=== PATIENT | male | born 1955 | race Caucasian/White ===

== ENCOUNTER → 2016-04-30 | Outpatient (CLI) | payer OTHER ==
[~2016-04-30] MED LIST: ACET50TAOT PO; ASPI325T PO; BUPR10TASR PO; CALCTAB43 PO; LISI10TA2 PO; PRIL40CA PO; TUMS500C PO; TYLE167L PO; TYLE650T30 PO; VITMTA PO; WARF-23 PO; XARE15TA PO
[2016-04-30 09:34] LABS: BASO % 0.5 % (0.0-1.0); EOS # 0.1 K/mm3 (0.0-0.50); EOS % 1.8 % (0.0-3.0); LARGE UNSTAINED CELL # 0.2 K/mm3 (0.0-0.4); LARGE UNSTAINED CELL % 2.3 % (0.0-4.0); LYMPH # 1.4 K/mm3 (1.5-4.5); LYMPH % 17.7 % (24.0-44.0); MEAN CORPUSCULAR HEMOGLOBIN 27.8 pg (27.0-33.0); MEAN CORPUSCULAR HGB CONC 31.8 g/dl (32.0-36.5); MEAN CORPUSCULAR VOLUME 87.4 fl (80.0-96.0); MONO # 0.4 K/mm3 (0.0-0.8); MONO % 5.4 % (0.0-5.0); NEUTROPHILS # 5.6 K/mm3 (1.8-7.7); NEUTROPHILS % 72.2 % (36.0-66.0); PLATELET COUNT, AUTOMATED 284 k/mm3 (150-450); RED CELL DISTRIBUTION WIDTH 15.2 % (11.5-14.5); WHITE BLOOD COUNT 7.8 K/mm3 (4.0-10.0)
[2016-04-30 10:07] LABS: ALBUMIN 3.3 GM/DL (3.2-5.2); ALBUMIN/GLOBULIN RATIO 1.06 (1.00-1.93); ALKALINE PHOSPHATASE 97 U/L (45-117); ALT/SGPT 23 U/L (12-78); ANION GAP 7 MEQ/L (8-16); AST/SGOT 17 U/L (15-37); BILIRUBIN,TOTAL 0.2 MG/DL (0.2-1.0); BLOOD UREA NITROGEN 19 MG/DL (7-18); CALCIUM LEVEL 8.5 MG/DL (8.5-10.1); CARBON DIOXIDE LEVEL 33 MEQ/L (21-32); CHLORIDE LEVEL 104 MEQ/L (98-107); CHOLESTEROL LEVEL 198 MG/DL (<200); CREATININE FOR GFR 0.89 MG/DL (0.70-1.30); FREE T4 1.06 NG/DL (0.76-1.46); GLOMERULAR FILTRATION RATE > 60.0 (>56); GLUCOSE, FASTING 101 MG/DL (70-105); SODIUM LEVEL 144 MEQ/L (136-145); TOTAL PROTEIN 6.4 GM/DL (6.4-8.2); TRIGLYCERIDES LEVEL 173 MG/DL (<150)
== END ==
LOC: M WUC 08:26
PROVIDERS: ATTEND Nurse Practitioner Family
DX: Z87.19 Personal history of other diseases of the digestive system (principal); D50.8 Other iron deficiency anemias; I10 Essential (primary) hypertension; E78.5 Hyperlipidemia, unspecified

== ENCOUNTER → 2016-08-16 | Outpatient (CLI) | payer OTHER ==
[2016-08-16 17:39] LABS: INR 1.73
[2016-08-16 17:52] LABS: ALBUMIN 3.7 GM/DL (3.2-5.2); ALBUMIN/GLOBULIN RATIO 1.19 (1.00-1.93); ALKALINE PHOSPHATASE 90 U/L (45-117); ALT/SGPT 30 U/L (12-78); ANION GAP 7 MEQ/L (8-16); AST/SGOT 24 U/L (15-37); BILIRUBIN,TOTAL 0.3 MG/DL (0.2-1.0); BLOOD UREA NITROGEN 22 MG/DL (7-18); CALCIUM LEVEL 8.1 MG/DL (8.5-10.1); CARBON DIOXIDE LEVEL 31 MEQ/L (21-32); CHLORIDE LEVEL 104 MEQ/L (98-107); CREATININE FOR GFR 0.97 MG/DL (0.70-1.30); GLOMERULAR FILTRATION RATE > 60.0 (>56); GLUCOSE, FASTING 106 MG/DL (70-105); SODIUM LEVEL 142 MEQ/L (136-145); TOTAL IRON BINDING CAPACITY 453 UG/DL (250-450); TOTAL PROTEIN 6.8 GM/DL (6.4-8.2)
[2016-08-16 18:00] LABS: BASO % 0.5 % (0.0-1.0); EOS # 0.2 K/mm3 (0.0-0.50); EOS % 2.1 % (0.0-3.0); LARGE UNSTAINED CELL # 0.1 K/mm3 (0.0-0.4); LARGE UNSTAINED CELL % 1.5 % (0.0-4.0); LYMPH # 1.5 K/mm3 (1.5-4.5); LYMPH % 15.4 % (24.0-44.0); MEAN CORPUSCULAR HEMOGLOBIN 30.1 pg (27.0-33.0); MEAN CORPUSCULAR HGB CONC 32.8 g/dl (32.0-36.5); MEAN CORPUSCULAR VOLUME 91.7 fl (80.0-96.0); MONO # 0.5 K/mm3 (0.0-0.8); MONO % 6.2 % (0.0-5.0); NEUTROPHILS # 6.3 K/mm3 (1.8-7.7); NEUTROPHILS % 74.3 % (36.0-66.0); PLATELET COUNT, AUTOMATED 239 k/mm3 (150-450); RED CELL DISTRIBUTION WIDTH 14.4 % (11.5-14.5); WHITE BLOOD COUNT 8.5 K/mm3 (4.0-10.0)
== END ==
LOC: M WUC 09:06
PROVIDERS: ATTEND Nurse Practitioner Family
DX: Z51.81 Encounter for therapeutic drug level monitoring (principal); I10 Essential (primary) hypertension; D50.8 Other iron deficiency anemias; Z79.01 Long term (current) use of anticoagulants; I26.99 Other pulmonary embolism without acute cor pulmonale

== ENCOUNTER → 2016-10-23 | Outpatient (CLI) | payer OTHER ==
[~2016-10-23] MED LIST changes: -CALCTAB43 PO; +CALCTAB74 PO
[2016-10-23 09:57] LABS: ALBUMIN 3.7 GM/DL (3.2-5.2); ALBUMIN/GLOBULIN RATIO 1.19 (1.00-1.93); ALKALINE PHOSPHATASE 94 U/L (45-117); ALT/SGPT 40 U/L (12-78); ANION GAP 4 MEQ/L (8-16); AST/SGOT 33 U/L (15-37); BILIRUBIN,TOTAL 0.3 MG/DL (0.2-1.0); BLOOD UREA NITROGEN 23 MG/DL (7-18); CARBON DIOXIDE LEVEL 32 MEQ/L (21-32); CHLORIDE LEVEL 103 MEQ/L (98-107); CREATININE FOR GFR 1.02 MG/DL (0.70-1.30); GLOMERULAR FILTRATION RATE > 60.0 (>56); GLUCOSE, FASTING 107 MG/DL (70-105); POTASSIUM SERUM 4.3 MEQ/L (3.5-5.1); SODIUM LEVEL 139 MEQ/L (136-145); TOTAL PROTEIN 6.8 GM/DL (6.4-8.2)
== END ==
LOC: M WUC 08:19
PROVIDERS: ATTEND Nurse Practitioner Family
DX: Z11.59 Encounter for screening for other viral diseases (principal); I10 Essential (primary) hypertension; R73.01 Impaired fasting glucose; E55.9 Vitamin D deficiency, unspecified

== ENCOUNTER → 2017-12-26 | Outpatient (CLI) | payer OTHER ==
[2017-12-26 17:52] LABS: BASO # 0.1 10^3/uL (0.0-0.2); BASO % 0.6 % (0.0-1.0); EOS # 0.2 10^3/uL (0.0-0.50); EOS % 2.1 % (0.0-3.0); HEMATOCRIT 40.6 % (42.0-52.0); HEMOGLOBIN 13.3 g/dl (13.5-17.5); IMMATURE GRANULOCYTE % 0.2 % (0-3.0); LYMPH # 1.7 10^3/uL (1.5-4.5); LYMPH % 20.1 % (24.0-44.0); MEAN CORPUSCULAR HEMOGLOBIN 31.2 pg (27.0-33.0); MEAN CORPUSCULAR HGB CONC 32.8 g/dl (32.0-36.5); MEAN CORPUSCULAR VOLUME 95.3 fl (80.0-96.0); MONO # 0.8 10^3/uL (0.0-0.8); NEUTROPHILS # 5.8 10^3/uL (1.8-7.7); PLATELET COUNT, AUTOMATED 213 10^3/uL (150-450); RED BLOOD COUNT 4.26 10^6/uL (4.30-6.10); RED CELL DISTRIBUTION WIDTH 13.2 % (11.5-14.5); WHITE BLOOD COUNT 8.6 10^3/uL (4.0-10.0)
[2017-12-26 18:00] LABS: ESTIMATED AVERAGE GLUCOSE 114 MG/DL (60-110); HEMOGLOBIN A1c 5.6 %
[2017-12-26 18:05] LABS: ALBUMIN 3.6 GM/DL (3.2-5.2); ALBUMIN/GLOBULIN RATIO 1.13 (1.00-1.93); ALKALINE PHOSPHATASE 83 U/L (45-117); ALT/SGPT 30 U/L (12-78); ANION GAP 5 MEQ/L (8-16); AST/SGOT 21 U/L (7-37); BILIRUBIN,TOTAL 0.3 MG/DL (0.2-1.0); BLOOD UREA NITROGEN 23 MG/DL (7-18); CALCIUM LEVEL 8.4 MG/DL (8.8-10.2); CARBON DIOXIDE LEVEL 32 MEQ/L (21-32); CHLORIDE LEVEL 104 MEQ/L (98-107); CHOLESTEROL LEVEL 197 MG/DL (<200); CHOLESTEROL RISK RATIO 5.184 (<5); CREATININE FOR GFR 1.05 MG/DL (0.70-1.30); FREE T4 0.88 NG/DL (0.76-1.46); GLOMERULAR FILTRATION RATE > 60.0 (>49); GLUCOSE, FASTING 112 MG/DL (70-100); HDL CHOLESTEROL 38 MG/DL (>40); IRON (FE) 62 UG/DL (65-175); LDL CHOLESTEROL 96.4 MG/DL (<100); NON-HDL-C 159 MG/DL; PERCENT SATURATION 16.1 % (19.7-50.0); POTASSIUM SERUM 4.4 MEQ/L (3.5-5.1); PSA SCREENING 2.36 NG/ML (< 4.0); SODIUM LEVEL 141 MEQ/L (136-145); TOTAL IRON BINDING CAPACITY 386 UG/DL (250-450); TOTAL PROTEIN 6.8 GM/DL (6.4-8.2); TRIGLYCERIDES LEVEL 313 MG/DL (<150)
[2017-12-26 18:53] LABS: CREATININE, URINE 79.6 MG/DL; MALB URINE SIEMENS < 5.0 MG/L; MAU/CREAT RATIO 6.2 MCG/MG (0.0-30.0)
[2017-12-29 10:14] LABS: TOTAL 25(OH) VITAMIN D 31.9 NG/ML (30.0-100.0)
== END ==
LOC: M WUC 08:10
DX: E55.9 Vitamin D deficiency, unspecified (principal); I10 Essential (primary) hypertension; Z12.5 Encounter for screening for malignant neoplasm of prostate; D50.8 Other iron deficiency anemias; R73.03 Prediabetes; E78.4 Other hyperlipidemia
CPT/HCPCS: 83550

== ENCOUNTER → 2018-01-05 | Outpatient (CLI) | payer OTHER | LOC: M RAD 08:25 | DX: R05 Cough (principal) | CPT/HCPCS: 71046 ==

== ENCOUNTER → 2018-02-03 | Outpatient (CLI) | payer OTHER | LOC: M RAD 08:11 | DX: Z12.2 Encounter for screening for malignant neoplasm of respiratory organs (principal); F17.218 Nicotine dependence, cigarettes, with other nicotine-induced disorders | CPT/HCPCS: G0297 ==

== ENCOUNTER → 2018-05-07 | Outpatient (CLI) | payer OTHER ==
[~2018-05-07] MED LIST changes: +ACET500T15 PO; -ACET50TAOT PO
[2018-05-07 10:32] LABS: ALBUMIN 3.7 GM/DL (3.2-5.2); ALT/SGPT 24 U/L (12-78); BILIRUBIN,TOTAL 0.3 MG/DL (0.2-1.0); BLOOD UREA NITROGEN 25 MG/DL (7-18); CALCIUM LEVEL 9.3 MG/DL (8.8-10.2); CARBON DIOXIDE LEVEL 33 MEQ/L (21-32); CHLORIDE LEVEL 102 MEQ/L (98-107); CREATININE FOR GFR 0.94 MG/DL (0.70-1.30); GLOMERULAR FILTRATION RATE > 60.0 (>49); GLUCOSE, FASTING 105 MG/DL (70-100); POTASSIUM SERUM 4.6 MEQ/L (3.5-5.1); SODIUM LEVEL 139 MEQ/L (136-145); TOTAL PROTEIN 6.7 GM/DL (6.4-8.2)
[2018-05-07 10:45] LABS: TOTAL 25(OH) VITAMIN D 35.5 NG/ML (30.0-100.0)
== END ==
LOC: M WUC 08:04
PROVIDERS: ATTEND Nurse Practitioner Family
DX: I10 Essential (primary) hypertension (principal)

== ENCOUNTER → 2018-08-27 | Outpatient (CLI) | payer OTHER ==
[~2018-08-27] MED LIST changes: +ASPI-1 PO; -ASPI325T PO
[2018-08-27 09:29] LABS: HEMATOCRIT 38.6 % (42.0-52.0); HEMOGLOBIN 12.1 g/dl (13.5-17.5); MEAN CORPUSCULAR HEMOGLOBIN 29.4 pg (27.0-33.0); MEAN CORPUSCULAR HGB CONC 31.3 g/dl (32.0-36.5); MEAN CORPUSCULAR VOLUME 93.7 fl (80.0-96.0); PLATELET COUNT, AUTOMATED 232 10^3/uL (150-450); RED BLOOD COUNT 4.12 10^6/uL (4.30-6.10); WHITE BLOOD COUNT 6.8 10^3/uL (4.0-10.0)
[2018-08-27 09:50] LABS: ALBUMIN 3.6 GM/DL (3.2-5.2); ALT/SGPT 27 U/L (12-78); BILIRUBIN,TOTAL 0.4 MG/DL (0.2-1.0); BLOOD UREA NITROGEN 27 MG/DL (7-18); CALCIUM LEVEL 8.5 MG/DL (8.8-10.2); CARBON DIOXIDE LEVEL 31 MEQ/L (21-32); CHLORIDE LEVEL 104 MEQ/L (98-107); CREATININE FOR GFR 1.07 MG/DL (0.70-1.30); GLOMERULAR FILTRATION RATE > 60.0 (>49); GLUCOSE, FASTING 96 MG/DL (70-100); POTASSIUM SERUM 4.1 MEQ/L (3.5-5.1); SODIUM LEVEL 139 MEQ/L (136-145); TOTAL PROTEIN 6.6 GM/DL (6.4-8.2)
[2018-08-27 09:57] LABS: HEMOGLOBIN A1c 5.2 %
== END ==
LOC: M WUC 08:05
PROVIDERS: ATTEND Nurse Practitioner Family
DX: D50.8 Other iron deficiency anemias (principal); I10 Essential (primary) hypertension; R73.01 Impaired fasting glucose

== ENCOUNTER → 2019-02-15 | Outpatient (CLI) | payer OTHER ==
[~2019-02-15] MED LIST changes: +LISI10TA15 PO; -LISI10TA2 PO
--- NOTE | 2019-02-16 02:51 | REP ---
Clinical: Lung screening. History smoking. Comparison: 02/03/2018 Technique: Axial low-dose noncontrast images from the thoracic inlet to the upper abdomen using lung screening technique. Findings: The lung gray are well-aerated minimal chronic stable changes are again noted. No consolidation, significant nodule or mass lesion is appreciated. No pleural effusion/reaction or pneumothorax. Tracheobronchial tree is patent. Mediastinum demonstrates mild atherosclerotic changes of the coronary arteries without cardiomegaly. Impression: Lung-RADS category I. No nodule or suspicious abnormality. Management recommendations include annual low-dose CT reevaluation. Electronically Signed by Gaston Hi MD 02/16/2019 02:43 A
== END ==
LOC: M RAD 08:16
PROVIDERS: ATTEND Internal Medicine Pulmonary Disease
DX: F17.218 Nicotine dependence, cigarettes, with other nicotine-induced disorders (principal)

== ENCOUNTER → 2019-06-27 | Outpatient (CLI) | payer OTHER ==
[2019-06-27 10:56] LABS: HEMATOCRIT 34.4 % (42.0-52.0); HEMOGLOBIN 11.7 g/dl (13.5-17.5); PLATELET COUNT, AUTOMATED 259 10^3/uL (150-450); RED BLOOD COUNT 3.66 10^6/uL (4.30-6.10); WHITE BLOOD COUNT 7.6 10^3/uL (4.0-10.0)
[2019-06-27 11:30] LABS: ALBUMIN 3.4 GM/DL (3.2-5.2); ALT/SGPT 32 U/L (12-78); BILIRUBIN,TOTAL 0.4 MG/DL (0.2-1.0); BLOOD UREA NITROGEN 24 MG/DL (7-18); CALCIUM LEVEL 8.6 MG/DL (8.8-10.2); CARBON DIOXIDE LEVEL 33 MEQ/L (21-32); CHLORIDE LEVEL 102 MEQ/L (98-107); CHOLESTEROL LEVEL 163 MG/DL (<200); CHOLESTEROL RISK RATIO 4.527 (<5); CREATININE FOR GFR 0.86 MG/DL (0.70-1.30); GLOMERULAR FILTRATION RATE > 60.0 (>49); GLUCOSE, FASTING 113 MG/DL (70-100); HDL CHOLESTEROL 36 MG/DL (>40); LDL CHOLESTEROL 88 MG/DL (<100); NON-HDL-C 127 MG/DL; POTASSIUM SERUM 3.8 MEQ/L (3.5-5.1); SODIUM LEVEL 139 MEQ/L (136-145); TOTAL PROTEIN 6.2 GM/DL (6.4-8.2); TRIGLYCERIDES LEVEL 195 MG/DL (<150)
[2019-06-27 11:32] LABS: HEMOGLOBIN A1c 5.6 %
== END ==
LOC: M WUC 08:14
PROVIDERS: ATTEND Nurse Practitioner Adult Health
DX: Z00.00 Encounter for general adult medical examination without abnormal findings (principal); E78.2 Mixed hyperlipidemia; Z79.01 Long term (current) use of anticoagulants

== ENCOUNTER → 2019-06-30 | Outpatient (REF) | payer OTHER ==
[2019-06-30 13:05] LABS: INR 3.95; PROTHROMBIN TIME 38.7 SECONDS (11.8-14.0)
== END ==
LOC: M SFHCPLAZ 08:47
PROVIDERS: ATTEND Nurse Practitioner Adult Health
DX: Z51.81 Encounter for therapeutic drug level monitoring (principal); Z79.01 Long term (current) use of anticoagulants; I26.99 Other pulmonary embolism without acute cor pulmonale

== ENCOUNTER → 2020-04-17 | Outpatient (CLI) | payer OTHER ==
[2020-04-17 12:16] LABS: HEMATOCRIT 36.3 % (42.0-52.0); HEMOGLOBIN 11.3 g/dl (13.5-17.5); MEAN CORPUSCULAR HEMOGLOBIN 28.8 pg (27.0-33.0); MEAN CORPUSCULAR HGB CONC 31.1 g/dl (32.0-36.5); MEAN CORPUSCULAR VOLUME 92.6 fl (80.0-96.0); PLATELET COUNT, AUTOMATED 229 10^3/uL (150-450); RED BLOOD COUNT 3.92 10^6/uL (4.30-6.10)
[2020-04-17 12:53] LABS: ALBUMIN 3.5 GM/DL (3.2-5.2); ALT/SGPT 28 U/L (12-78); BILIRUBIN,TOTAL 0.3 MG/DL (0.2-1.0); BLOOD UREA NITROGEN 27 MG/DL (7-18); CALCIUM LEVEL 8.3 MG/DL (8.8-10.2); CARBON DIOXIDE LEVEL 30 MEQ/L (21-32); CHLORIDE LEVEL 105 MEQ/L (98-107); CHOLESTEROL LEVEL 211 MG/DL (<200); CHOLESTEROL RISK RATIO 5.275 (<5); CREATININE FOR GFR 1.18 MG/DL (0.70-1.30); GLOMERULAR FILTRATION RATE > 60.0 (>49); GLUCOSE, FASTING 112 MG/DL (70-100); HDL CHOLESTEROL 40 MG/DL (>40); IRON (FE) 28 UG/DL (65-175); LDL CHOLESTEROL 126 MG/DL (<100); NON-HDL-C 171 MG/DL; NT-PRO BNP 211 PG/ML (<125); POTASSIUM SERUM 4.2 MEQ/L (3.5-5.1); SODIUM LEVEL 138 MEQ/L (136-145); TOTAL PROTEIN 6.6 GM/DL (6.4-8.2); TRIGLYCERIDES LEVEL 225 MG/DL (<150)
[2020-04-17 15:37] LABS: HEMOGLOBIN A1c 6.1 %
== END ==
LOC: M WUC 08:49
PROVIDERS: ATTEND Nurse Practitioner Adult Health
DX: R73.03 Prediabetes (principal); D64.9 Anemia, unspecified; I10 Essential (primary) hypertension; Z13.29 Encounter for screening for other suspected endocrine disorder; Z79.01 Long term (current) use of anticoagulants; R60.0 Localized edema

== ENCOUNTER → 2020-10-12 | Outpatient (CLI) | payer OTHER ==
--- NOTE | 2020-10-12 13:36 | REPPI ---
INDICATION: RR94.2 ABNORMAL RESULTS OF PULMONARY FUNCTION TEST COMPARISON: 01/05/2018. TECHNIQUE: PA/Lateral FINDINGS: Lungs: Clear, no infiltrate. Mild stable scattered fibrotic changes are again seen. Heart: Normal in size. Mediastinum: Mediastinal silhouette unremarkable. Pleural angles: Unremarkable.. Bones and soft tissues: There are degenerative changes of the spine without compression deformity. IMPRESSION: No acute pulmonary disease. Stable chronic findings. <Electronically signed by Jm Graves > 10/12/20 [id number]
== END ==
LOC: M PLAIMG 11:45
PROVIDERS: ATTEND Internal Medicine Pulmonary Disease
DX: R94.2 Abnormal results of pulmonary function studies (principal)

== ENCOUNTER 2020-11-16 15:24 | Observation (INO) | payer OTHER ==
[~2020-11-16] VITALS: Ht 182.9 cm; Wt 141.8 kg
[~2020-11-16 15:24] MED LIST changes: -ACET650T3 PO; -ALBU8.5H INH; -ATOR40TA75 PO; -LISI40TA4 PO; -METO50TA7 PO; -OMEP-218; -OMEP-221 PO; -POTA20TA6 PO; -STIO1AER INH; -TORS100T PO
[2020-11-16] MEDS ORDERED: POTA20TA6 PO (15:41)
[2020-11-16] MEDS ORDERED: ATOR40TA75 PO (15:41)
[2020-11-16] MEDS ORDERED: TORS100T PO (15:41)
[2020-11-16] MEDS ORDERED: METO50TA7 PO (15:41)
[2020-11-16] MEDS ORDERED: LISI40TA4 PO (15:41)
[2020-11-16] MEDS ORDERED: OMEP-218 (15:41)
[2020-11-16] MEDS ORDERED: ALBU8.5H INH (15:54)
[2020-11-16] MEDS ORDERED: STIO1AER INH (15:54)
[2020-11-16] MEDS ORDERED: NS 1,000 ML IV SCH (16:10)
[2020-11-16] MEDS ORDERED: NS 1,000 ML IV ONE (16:35)
[2020-11-16 16:54] LABS: APPEARANCE, URINE CLEAR (CLEAR); BACTERIA, URINE AUTO NEGATIVE (NEGATIVE); BILIRUBIN, URINE AUTO NEGATIVE (NEGATIVE); BLOOD, URINE BLOOD NEGATIVE (NEGATIVE); COLOR, URINE STRAW (YELLOW); GLUCOSE, URINE (UA) AUTO NEGATIVE (NEGATIVE); KETONE, URINE AUTO NEGATIVE (NEGATIVE); LEUKOCYTE ESTERASE, URINE AUTO NEGATIVE (NEGATIVE); MUCUS, URINE SMALL (NEGATIVE); NITRITE, URINE AUTO NEGATIVE (NEGATIVE); PROTEIN, URINE AUTO NEGATIVE (NEGATIVE); RBC, URINE AUTO 2 /HPF (0-3); SPECIFIC GRAVITY URINE AUTO 1.009 (1.002-1.035); SQUAMOUS EPITHELIAL CELL UR AU 0 /HPF (0-6); UROBILINOGEN, URINE AUTO 0.2 mg/dL (0.0-2.0); WBC, URINE AUTO 0 /HPF (0-3)
[2020-11-16] MEDS ORDERED: WARF-23 PO (18:03)
[2020-11-16] MEDS ORDERED: ACET650T3 PO (18:03)
[2020-11-16] MEDS ORDERED: OMEP-221 PO (18:03)
[2020-11-16] MEDS ORDERED: ACETAMINOPHEN TAB 650MG DOSE (2X325MG) PO PRN (18:10)
[2020-11-16] MEDS ORDERED: ACETAMINOPHEN 650MG ER TAB (TYLENOL ARTHRITIS) PO PRN (18:10)
[2020-11-16] MEDS ORDERED: ALBUTEROL 90 MCG/ACT 8GM HFA INHALER INH PRN (18:10)
[2020-11-16 19:06] LABS: RSV AMPLIFICATION NEGATIVE (NEGATIVE)
--- NOTE | 2020-11-16 19:33 | HPEPDOC ---
[facility] Medical History & Physical Date of Admission Nov 16, 2020 Date of Service: Nov 16, 2020 Attending Physician: MAO ROBLEDO MD History and Physical CHIEF COMPLAINT: Sent in by PCP for elevated Cr on outpatient labs HISTORY OF PRESENT ILLNESS: 64 yo M with a history of HTN, HLD, GERD, CAD, DVT and PE on warfarin, history of a GIB who recently had an outpatient LHC at [facility] 5d prior to presentation that went well and he was discharged home on his regular medications that include lisinopril 40mg QD and torsemide 100 QD. He was doing well at home with no complaints completely and went for his scheduled follow up with his outpatient provider and had routine labs post LHC that revealed an SHIRLEY with Cr of 2.11 from a baseline of 1 and a BUN of 51. Na was 140, K 4.7, WBC 9.9, hgb 9.5, platelet 199. As stated above ROS was grossly negative without chest pain, palpations, SOB, dysuria, hematuria, low PO or abdominal pain. His provider sent him to the ED for evaluation where he was hemodynamically stable, afebrile, is breathing comfortably on room air, and Dr Dubon (ED) spoke with nephrology software applications engineer that recommended medicine admission for hydration and work up of SHIRLEY that likely is iatrogenic including contrast induced nephropathy s/p LHC with immediate resumption of ACEi and loop diuretic that was increased from lasix 40 BID approximately 2w prior to torsemide 100mg. PAST MEDICAL HISTORY: HTN, HLD, GERD, CAD, DVT and PE on warfarin, history of a GIB PAST SURGICAL HISTORY: Recent C Sinus tumor removal Oral surgery colonoscopy EGD IVC filter placement SOCIAL HISTORY: Former smoker No alcohol No illicit drugs FAMILY HISTORY: Father: . had VA and liver cirrhosis Mother: . DM and hypothyroidism Siblings: 1 brother from cancer Children: healthy ALLERGIES: Please see below. REVIEW OF SYSTEMS: 10 point ROS was grossly negative. HOME MEDICATIONS: Please see below. PHYSICAL EXAMINATION: VITAL SIGNS: see below GENERAL APPEARANCE: NAD, obese HEENT: NCAT, EOMI, MMM CARDIOVASCULAR: RRR, systolic murmur heard throughout the precordium LUNGS: CTAB, speaking in full sentences, on room air ABDOMEN: Obese, normoactive sounds, soft, NTND EXTREMITIES: WWP, 2+ chronic dependent edema in BLEto above knees NEUROLOGICAL: CN3-12 intact, clear speech, moving extremities spontaneously LABORATORY DATA and IMAGING: Data reviewed above. No imaging. MICROBIOLOGY: Please see below. ASSESSMENT: 64 yo M with a history of HTN, HLD, GERD, CAD, HFpEF, DVT and PE on warfarin, history of a GIB who recently had an outpatient LHC at [facility] 5d prior to presentation that went well and he was discharged home on his regular medications that include lisinopril 40mg QD and torsemide 100 QD but was sent to the ED by his PCP for abnormal labs c/w an SHIRLEY and is now being admitted for hydration and work up of the SHIRLEY that likely is iatrogenic including contrast induced nephropathy though contrast was given 5d ago and should be improving and on ACEi and loop diuretic. PLAN: SHIRLEY: Likely multifactorial including iatrogenic given recent contrast during LHC and resuming Torsemide 100mg and lisinopril 40mg daily. -s/p 1L in the ED -hold ACEi and torsemide -recheck BMP in the morning -nephrology consulted -UA was bland -renal US HTN: -Hold ACEi, continue metop 75 BID HLD: -continue lipitor COPD: -continue home mdi equivalents GERD with a history of Shaw's: -continue home omeprazole History of VTEs: -continue home warfarin with daily INR checks Depression: -continue home bupropion CHF w/ mild overload but reports that his legs look better than baseline and is on room air, mostly euvolemic: -No TTE on file, will request records as he has had several with Dr. Ravi and just had a C Vital Signs Vital Signs Date Time Temp Pulse Resp B/P (MAP) Pulse Ox O2 Delivery O2 Flow Rate FiO2 11/16/20 15:50 11/16/20 15:25 97.3 99 20 97 Room Air Laboratory Data Labs 24H Laboratory Tests 2 11/16/20 16:36: Urine Color STRAW, Urine Appearance CLEAR, Urine pH 5.0, Urine Specific [place] 1.009, Urine Protein NEGATIVE, Urine Glucose (Auto)(UA) NEGATIVE, Urine Ketones (Auto) NEGATIVE, Urine Blood NEGATIVE, Urine Nitrite NEGATIVE, Urine Bilirubin NEGATIVE, Urine Urobilinogen 0.2, Urine Leukocyte Esterase (Auto) NEGATIVE, Urine WBC (Auto) 0, Urine RBC (Auto) 2, Urine Hyaline Casts (Auto) 7, Urine Bact eria (Auto) NEGATIVE, Urine Squamous Epithelial Cells 0, Urine Mucus (Auto) SMALL, Urine Sperm (Auto) Home Medications Scheduled Atorvastatin Calcium (Atorvastatin Calcium) 40 Mg Tablet, 40 MG PO Q2D Bupropion Hcl (Bupropion HCl Sr) 100 Mg Tabsr, 100 MG PO BID Lisinopril (Lisinopril) 40 Mg Tablet, 40 MG PO DAILY Metoprolol Tartrate (Metoprolol Tartrate) 50 Mg Tablet, 75 MG PO BID Multivitamins (Thera M Plus Tablet) 1 Tab Tab, 1 TAB PO DAILY Omeprazole (Omeprazole) 40 Mg Capsule.dr, 40 MG PO DAILY Potassium Chloride (Potassium Chloride) 20 Meq Tab.er.prt, 20 MEQ PO DAILY Tiotropium Br/Olodaterol HCl (Stiolto Respimat Inhal [place]) 4 Gm Mist.inhal, 2 PUFF INH DAILY Torsemide (Torsemide) 100 Mg Tablet, 100 MG PO DAILY Warfarin Sodium (Warfarin Sodium) 5 Mg Tab, 5 MG PO 2XW MON AND FRI: QAM Warfarin Sodium (Warfarin Sodium) 5 Mg Tablet, 2.5 MG PO 5XW TU, WED, TH, SAT, SUN Scheduled PRN Acetaminophen (Pain Reliever) 650 Mg Tablet.er, 650 MG PO Q6H PRN for PAIN LEVEL 1-5 Albuterol Sulfate (Albuterol Sulfate Hfa) 8.5 Gm Hfa.aer.ad, 2 PUFF INH QID PRN for SOB/WHEEZING Allergies Coded Allergies: No Known Allergies (Unverified , 04/29/15) A-FIB/CHADSVASC A-FIB History Current/History of A-Fib/PAF?: No Current PO Anticoag Therapy: Yes Treatment Treatment ordered: Warfarin MAO ROBLEDO MD Nov 16, 2020 18:41
[2020-11-16] MEDS: METOPROLOL TART 25 MG TABLET PO SCH (21:00)
[2020-11-16] MEDS: buPROPion (WELLBUTRIN SR) 100 MG SR TAB PO SCH (21:48)
[2020-11-16 22:00] VITALS: BP 115/58
--- NOTE | 2020-11-16 22:41 | REPVR ---
PROCEDURE INFORMATION: Exam: US Retroperitoneal Limited, Kidneys Exam date and time: 11/16/2020 8:36 PM Age: 64 years old Clinical indication: Abnormal findings; Abnormal lab test; Abnormal kidney function lab tests; Additional info: Cooper TECHNIQUE: Imaging protocol: Real-time ultrasound of the retroperitoneum with image documentation. Examination was focused on the kidneys. COMPARISON: 1. LOW DOSE LUNG SCREENING CT 2019-02-15 08:39 2. LOW DOSE LUNG SCREENING CT 2018-02-03 08:24 FINDINGS: Right kidney: No stones. No hydronephrosis. Left kidney: No stones. No hydronephrosis. IMPRESSION: No acute findings. Electronically signed by: Mu Mendiola On 11/16/2020 22:41:24 PM
[2020-11-17 06:49] LABS: HEMATOCRIT 25.8 % (42.0-52.0); HEMOGLOBIN 8.5 g/dl (13.5-17.5); MEAN CORPUSCULAR HEMOGLOBIN 32.9 pg (27.0-33.0); MEAN CORPUSCULAR HGB CONC 32.9 g/dl (32.0-36.5); PLATELET COUNT, AUTOMATED 171 10^3/uL (150-450); RED BLOOD COUNT 2.58 10^6/uL (4.30-6.10); WHITE BLOOD COUNT 8.7 10^3/uL (4.0-10.0)
[2020-11-17 06:59] LABS: INR 1.17; PROTHROMBIN TIME 15.2 SECONDS (12.5-14.3)
[2020-11-17 07:14] LABS: CALCIUM LEVEL 7.8 MG/DL (8.8-10.2); CREATININE FOR GFR 1.52 MG/DL (0.70-1.30); GLOMERULAR FILTRATION RATE 49.6 (>49); MAGNESIUM LEVEL 1.7 MG/DL (1.8-2.4)
[2020-11-17] MEDS ORDERED: COMBIVENT RESPIMAT 100-20MCG INHALER 4GM INH SCH (08:00)
[2020-11-17] MEDS ORDERED: WARFARIN SOD 2.5MG TAB PO SCH (09:00)
[2020-11-17] MEDS ORDERED: OMEPRAZOLE 20 MG CAP PO SCH (09:00)
[2020-11-17] MEDS ORDERED: POTASSIUM CHLORIDE 10 MEQ SR TABLET PO SCH (09:00)
[2020-11-17] MEDS ORDERED: MULTIVITAMINS/MINERALS THERAP 1 TAB PO SCH (09:00)
[2020-11-17 09:29] VITALS: BP 130/53
[2020-11-17] MEDS: METOPROLOL TART 25 MG TABLET PO SCH (09:29)
[2020-11-17] MEDS: buPROPion (WELLBUTRIN SR) 100 MG SR TAB PO SCH (09:29)
--- NOTE | 2020-11-17 11:31 | DS.PDOC ---
Discharge Summary General Date of Admission Nov 16, 2020 at 15:25 Date of Discharge 11/17/2020 Attending Physician: MAO ROBLEDO MD Discharge Summary PROCEDURES PERFORMED DURING STAY: None. ADMITTING DIAGNOSES: SHIRLEY DISCHARGE DIAGNOSES: SHIRLEY HTN HLD GERD CAD History of DVT and PE on warfarin COMPLICATIONS/CHIEF COMPLAINT: Acute Renal Failure, Contrast Dye Induced Nephr opa. HISTORY OF PRESENT ILLNESS: 64 yo M with a history of HTN, HLD, GERD, CAD, DVT and PE on warfarin, history of a GIB who recently had an outpatient LHC at [facility] 5d prior to presentation that went well and he was discharged home on his regular medications that included lisinopril 40mg QD and torsemide 100 QD. He was doing well at home with no complaints completely and went for his scheduled follow up with his outpatient provider and had routine post LHC labs that revealed an SHIRLEY with Cr of 2.11 from a baseline of 1 and a BUN of 51. Na was 140, K 4.7, WBC 9.9, hgb 9.5, platelet 199. As stated above ROS was grossly negative without chest pain, palpations, SOB, dysuria, hematuria, low PO or abdominal pain. His provider sent him to the ED for evaluation of his SHIRLEY. HOSPITAL COURSE: He arrived hemodynamically stable, afebrile, breathing comfortably on room air, and Dr Dubon (ED) spoke with nephrology diamond die driller that recommended medicine admission for hydration and work up of SHIRLEY that likely was iatrogenic including contrast induced nephropathy s/p LHC with immediate resumption of ACEi and loop diuretic that was increased from lasix 40 BID approximately 2w prior to t orsemide 100mg. He was given 1L NS and torsemide and lisinopril were held. On day 2, he continued to feel well and his Cr had improved to 1.52 with a BUN of 41. I speaking with Dr. Saige Odell, she recommended home discharge on his torsemide but to hold his ACEi for now until he follow with cardiology which he has an appointment on 11/19, and she plans to see him pre-discharge to offer if he would like to followup in the nephrology clinic. He is now being discharged home. Of note, as part of his SHIRLEY workup, he did have a renal US that was grossly normal. DISCHARGE MEDICATIONS: Please see below. ALLERGIES: Please see below. PHYSICAL EXAMINATION ON DISCHARGE: VITAL SIGNS: Please see below. GENERAL APPEARANCE: NAD, obese HEENT: NCAT, EOMI, MMM CARDIOVASCULAR: RRR, systolic murmur heard throughout the precordium LUNGS: CTAB, speaking in full sentences, on room air ABDOMEN: Obese, normoactive sounds, soft, NTND EXTREMITIES: WWP, 2+ chronic dependent edema in BLE to below knees NEUROLOGICAL: CN3-12 intact, clear speech, moving extremities spontaneously LABORATORY DATA: Please see below. IMAGING: Renal US: IMPRESSION: No acute findings. PROGNOSIS: Good ACTIVITY: As tolerated DIET: 2g sodium DISCHARGE PLAN: Home with cardiology appt on 11/19 and to hold ACEi. DISPOSITION: Home DISCHARGE INSTRUCTIONS: Home with cardiology appt on 11/19 and to hold ACEi. ITEMS TO FOLLOWUP ON ON OUTPATIENT: SHIRLEY DISCHARGE CONDITION: Stable TIME SPENT ON DISCHARGE: 32 minutes. Vital Signs/I&Os Vital Signs Date Time Temp Pulse Resp B/P (MAP) Pulse Ox O2 Delivery O2 Flow Rate FiO2 11/17/20 09:29 101 130/53 11/16/20 22:00 97.7 16 96 Room Air I&O- Last 24 Hours up to 6 AM 11/17/20 05:59 Intake Total 1900 ml Output Total 325 ml Balance 1575 ml Laboratory Data Labs 24H Laboratory Tests 2 11/16/20 16:36: Urine Color STRAW, Urine Appearance CLEAR, Urine pH 5.0, Urine Specific [place] 1.009, Urine Protein NEGATIVE, Urine Glucose (Auto)(UA) NEGATIVE, Urine Ketones (Auto) NEGATIVE, Urine Blood NEGATIVE, Urine Nitrite NEGATIVE, Urine Bilirubin NEGATIVE, Urine Urobilinogen 0.2, Urine Leukocyte Esterase (Auto) NEGATIVE, Urine WBC (Auto) 0, Urine RBC (Auto) 2, Urine Hyaline Casts (Auto) 7, Urine Bacteria (Auto) NEGATIVE, Urine Squamous Epithelial Cells 0, Urine Mucus (Auto) SMALL, Urine Sperm (Auto) 11/16/20 17:40: Coronavirus (COVID-19)(PCR) NEGATIVE, Influenza Type A (RT-PCR) NEGATIVE, Influenza Type B (RT-PCR) NEGATIVE, Respiratory Syncytial Virus (PCR) NEGATIVE 11/17/20 06:21: Nucleated Red Blood Cells % (auto) 0.0, Prothrombin Time 15.2H, Prothromb Time International Ratio 1.17, Anion Gap 6L, Glomerular Filtration Rate 49.6, Calcium Level 7.8L, Magnesium Level 1.7L CBC/BMP Laboratory Tests 11/17/20 06:21 Discharge Medications Scheduled Atorvastatin Calcium (Atorvastatin Calcium) 40 Mg Tablet, 40 MG PO Q2D, (Reported) Bupropion Hcl (Bupropion HCl Sr) 100 Mg Tabsr, 100 MG PO BID, (Reported) Metoprolol Tartrate (Metoprolol Tartrate) 50 Mg Tablet, 75 MG PO BID, (Reported) Multivitamins (Thera M Plus Tablet) 1 Tab Tab, 1 TAB PO DAILY, (Reported) Omeprazole (Omeprazole) 40 Mg Capsule.dr, 40 MG PO DAILY, (Reported) Potassium Chloride (Potassium Chloride) 20 Meq Tab.er.prt, 20 MEQ PO DAILY, (Reported) Tiotropium Br/Olodaterol HCl (Stiolto Respimat Inhal [place]) 4 Gm Mist.inhal, 2 PUFF INH DAILY, (Reported) Torsemide (Torsemide) 100 Mg Tablet, 100 MG PO DAILY, (Reported) Warfarin Sodium (Warfarin Sodium) 5 Mg Tab, 5 MG PO 2XW, (Reported) MON AND FRI: QAM Warfarin Sodium (Warfarin Sodium) 5 Mg Tablet, 2.5 MG PO 5XW, (Reported) , WED, TH, SAT, SUN Scheduled PRN Acetaminophen (Pain Reliever) 650 Mg Tablet.er, 650 MG PO Q6H PRN for PAIN LEVEL 1-5, (Reported) Albuterol Sulfate (Albuterol Sulfate Hfa) 8.5 Gm Hfa.aer.ad, 2 PUFF INH QID PRN for SOB/WHEEZING, (Reported) Allergies Coded Allergies: No Known Allergies (Unverified , 04/29/15) MAO ROBLEDO MD Nov 17, 2020 11:30
--- NOTE | 2020-11-17 11:31 | IPNPDOC ---
Text Note Date of Service The patient was seen on 11/17/20. NOTE Subjective: -No acute complaints Objective: VITAL SIGNS: see below GENERAL APPEARANCE: NAD, obese HEENT: NCAT, EOMI, MMM CARDIOVASCULAR: RRR, systolic murmur LUNGS: CTAB, speaking in full sentences, on room air ABDOMEN: Obese, normoactive sounds, soft, NTND EXTREMITIES: WWP, 2+ chronic dependent edema in BLE to below knees NEUROLOGICAL: CN3-12 intact, clear speech, moving extremities spontaneously LABORATORY DATA: reviewed Cr downtrended to 1.52 BUN 41 Mag 1.7 K 4 Hgb 8.5 MICROBIOLOGY: Please see below. ASSESSMENT: 64 yo M with a history of HTN, HLD, GERD, CAD, HFpEF, DVT and PE on warfarin, history of a GIB who recently had an outpatient LHC at [facility] 5d prior to presentation that went well and he was discharged home on his regular medications that include lisinopril 40mg QD and torsemide 100 QD and then subsequently developed an SHIRLEY noted on outpatient labs by his PCP and was admitted for hydration and work up of the SHIRLEY that is likely iatrogenic 2/2 contrast induced nephropathy though contrast had been given 5d prior as well as ACEi and loop diuretic shortly after contrast dye. PLAN: SHIRLEY: Likely multifactorial including iatrogenic given recent contrast during LHC and resuming Torsemide 100mg and lisinopril 40mg daily. -s/p 1L in the ED -holding ACEi and torsemide -recheck BMP in the morning -nephrology consulted, follow up recs -UA was bland -renal US was unremarkable -strict I/Os HTN: -Hold ACEi, continue metop 75 BID with hold parameters HLD: -continue lipitor COPD: -continue home mdi equivalents GERD with a history of Shaw's: -continue home omeprazole History of VTEs: -continue home warfarin with daily INR checks Depression: -continue home bupropion CHF without acute exacerbation: w/ mild overload but reports that his legs look better than baseline and is on room air, mostly euvolemic: -No TTE on file, will request records as he has had several with Dr. Ravi and just had a LHC VS,Josette, I+O VS, Josette, I+O Laboratory Tests 11/17/20 06:21 Vital Signs Date Time Temp Pulse Resp B/P (MAP) Pulse Ox O2 Delivery O2 Flow Rate FiO2 11/16/20 22:00 97.7 87 16 115/58 (77) 96 Room Air I&O- Last 24 Hours up to 6 AM 11/17/20 06:00 Intake Total 1900 ml Output Total 325 ml Balance 1575 ml MAO ROBLEDO MD Nov 17, 2020 07:22
[2020-11-17 14:00] VITALS: BP 112/54
[2020-11-17 14:31] LABS: PERCENT SATURATION 8.3 % (19.7-50.0)
--- NOTE | 2020-11-17 15:14 | CR ---
CONSULTATION DATE: 11/17/2020 REQUESTING PHYSICIAN: ER physician, Dr. Dubon CONSULTING PHYSICIAN: Nancy Odell DO REASON FOR CONSULTATION: Acute kidney injury. CHIEF COMPLAINT: Sent in by primary care (Theresa Bryan, RN, ANP) for acute kidney injury on recent labs. HISTORY OF PRESENT ILLNESS: Mr. Porter is a previously unknown to me. He is a 64-year-old male with a past medical history of hypertension, dyslipidemia, GERD, coronary artery disease, history of DVT and PE in the past on chronic coumadin, history of GI bleed in the past along with a history of diastolic congestive heart failure and valvular heart disease. The patient tells me he follows up with Dr. Ravi and recently had a cardiac catheterization on Thursday as part of ischemic workup for what sounds like plan for some valvular surgery. His baseline creatinine is reportedly 1 and the patient also takes torsemide and lisinopril and reports torsemide dose was recently increased. He had repeat labs done on Thursday by his primary care that showed a creatinine up to 2.1 and patient was instructed to come to the emergency room. In the emergency room, he was given a liter of IV fluid and plan was made to keep him overnight for repeat renal function the following day and his GEORGE inhibitor and loop diuretic were held and labs today show creatinine down to 1.5 and patient is anxious to go home. He tells me he has an appointment with Dr. Ravi on Thursday and an appointment with Theresa Bryan on . She denies any NSAID use and reports no stent was placed on his left heart cath. PAST MEDICAL HISTORY: As mentioned above and also includes obesity. PAST SURGICAL HISTORY: Recent cardiac catheterization, history of sinus tumor removal, oral surgery, colonoscopy, endoscopy, IVC filter placement. SOCIAL HISTORY: Ex-smoker, no alcohol, no drugs. FAMILY HISTORY: Significant for heart disease, diabetes and he denies history of renal failure. ALLERGIES: No known drug allergies. REVIEW OF SYSTEMS: Constitutional: Denies fevers or chills. Eyes: Denies visual tearing or blurring. ENT: Denies rhinorrhea, epistaxis, odynophagia. Cardiac: He has a diastolic congestive heart failure based upon echocardiogram in 2016. He reports recent cardiac catheterization. He reports improved leg swelling. He denies chest pain. Respiratory: He denies shortness of breath or cough. Gastrointestinal: He denies nausea, vomiting, diarrhea. He has a history of GI bleed in the past. Genitourinary: He denies dysuria or hematuria. Endocrine: He denies diabetes or thyroid issues. Hematologic: He reports chronic anticoagulant use and history of DVT and PE. Neurologic: He denies seizure or syncope. Skin: He denies any new rashes or ulcers. Remainder of review of systems is negative or as per HPI. HOME MEDICATIONS: Reviewed and include: 1. Lipitor 40 mg every other day 2. Lisinopril 40 mg daily. 3. Metoprolol 75 mg p.o. b.i.d. 4. Omeprazole 40 mg daily. 5. Potassium 20 mEq p.o. daily. 6. Torsemide 100 mg p.o. daily. 7. Coumadin. PHYSICAL EXAMINATION: Vital signs: Temperature 97.7, pulse 87, respiratory rate 16, blood pressure 115/58, saturating 96% on room air. Intake yesterday was 1600. Weight in the bed scale today is not recorded. General: Patient is seen awake, alert, walking around the room in no distress, obese male. HEENT: Extraocular muscles are intact. Tongue is moist. Neck is supple. Jugular veins were not elevated while he was upright. Heart: Heart sounds are regular, S1, S2. There is a systolic murmur. Lungs show symmetric air entry, no crackle or rale. Abdomen: Obese, soft and nontender. Extremities: There is chronic pitting edema that comes up to the knees which patient reports is better than usual. Skin: Warm and dry. Neurologic: He is oriented x3, interactive, conversational and appears to be at baseline mentation. LABORATORY DATA: White count 8.7, hemoglobin 8.5, platelets 171. Sodium 140, potassium 4.0, bicarbonate 29, BUN 41, creatinine 1.5, Renal ultrasounds shows no obstruction. INPATIENT MEDICATIONS: 1. He received one liter of normal saline yesterday. 2. He continues on albuterol. 3. Lipitor 40 mg every other day. 4. Metoprolol 75 mg p.o. b.i.d. 5. Omeprazole 40 mg p.o. daily. 6. Coumadin. 7. Multivitamin. PROBLEMS: 1. Acute kidney injury superimposed on CKD stage 2. Patient's baseline creatinine is apparently near 1 based on the last renal panel that I see in the [facility] system in March,. He recently had up titration in his diuretic. He is also on chronic GEORGE inhibitor therapy. He had a cardiac catheterization on Thursday. His acute kidney injury is likely in the setting of contrast induced nephropathy with additional risk factor being his anemia along with chronic diuretic and GEORGE inhibitor. He received one liter of fluid yesterday. His renal function is improving. His renal ultrasound was negative for obstruction. He can be discharged with a close followup with cardiology and primary care next week. I suggest to keep him off of the GEORGE inhibitor until his renal function returns back to baseline. His blood pressure is already very well controlled and his antihypertensives were held during this brief hospitalization. He only got one dose of metoprolol and blood pressures are mostly systolic, 100-110s. 2. Anemia. Patient had iron deficiency on his old labs in 2018. His hemoglobin is only 8.5. Anemia is also a risk factor for dye-induced nephropathy. He should be worked up by his primary care for repeat iron studies and optimization and correction of the anemia. I will add the iron panel onto today's morning labs. 3. Hypertension. His lisinopril has been held because of acute kidney injury. His lisinopril has been held because of acute kidney injury. His systolic pressures are 110s. Continue to hold GEORGE inhibitor until he has followup with his elementary math tutor and/or primary with repeat labs to ensure that renal function continues to improve. 4. Diastolic congestive heart failure. Most recent echocardiogram I can find in the [facility] system was in 2016 that did show diastolic dysfunction. He likely has more up to date imaging with his elementary math tutor. He will continue on his chronic diuretic. He reports the dose was recently increased and that his leg edema is much better than his usual baseline.
--- NOTE | 2020-11-17 21:23 | ECGEPIP ---
[facility] - ED Test Date: 2020-11-16 Pat Name: SHAYY JOHNSTON Department: Room: [place] [id number] Gender: Male Business Advisor: MARIELA : [id number] Requested By: SUNNY Ortiz Order Number: [id number] Reading MD: Ana Herndon Measurements Intervals [place] Rate: 88 P: 53 [place]: 146 QRS: 54 QRSD: 86 T: 11 QT: 348 QTc: 421 Interpretive Statements Normal sinus rhythm Nonspecific T wave abnormality increased rate 05/10/15 Electronically Signed on 11-17-2020 21:23:02 EDT by Ana Herndon
[2020-11-18] MEDS ORDERED: ATORVASTATIN 20 MG TAB PO SCH (09:00)
[2020-11-19] MEDS ORDERED: WARFARIN SOD 5MG TAB PO SCH (09:00)
== END 2020-11-17 15:24 | disposition home or self-care (01) ==
LOC: M ED 15:24 → M ED INP 15:25 → M MSPAV 20:55
PROVIDERS: ADMIT Internal Medicine; ATTEND Internal Medicine
DX: N17.9 Acute kidney failure, unspecified (principal); I12.9 Hypertensive chronic kidney disease with stage 1 through stage 4 chronic kidney disease, or unspecified chronic kidney disease; E78.5 Hyperlipidemia, unspecified; I25.10 Atherosclerotic heart disease of native coronary artery without angina pectoris; K21.9 Gastro-esophageal reflux disease without esophagitis; Z86.711 Personal history of pulmonary embolism; Z86.718 Personal history of other venous thrombosis and embolism; Z79.01 Long term (current) use of anticoagulants; J44.9 Chronic obstructive pulmonary disease, unspecified; F32.9 Major depressive disorder, single episode, unspecified; Z87.891 Personal history of nicotine dependence; I50.9 Heart failure, unspecified; Z79.899 Other long term (current) drug therapy

== ENCOUNTER → 2020-11-16 | Outpatient (CLI) | payer OTHER ==
[~2020-11-16] MED LIST changes: +ACET650T3 PO; +ALBU8.5H INH; +ATOR40TA75 PO; +LISI40TA4 PO; +METO50TA7 PO; +OMEP-218; +OMEP-221 PO; +POTA20TA6 PO; +STIO1AER INH; +TORS100T PO
[2020-11-16 10:19] LABS: CREATININE FOR GFR 2.11 MG/DL (0.70-1.30); GLOMERULAR FILTRATION RATE 33.9 (>49)
== END ==
LOC: M WUC 08:38
PROVIDERS: ATTEND Internal Medicine Cardiovascular Disease
DX: I34.2 Nonrheumatic mitral (valve) stenosis (principal)

== ENCOUNTER → 2020-11-16 | Outpatient (CLI) | payer OTHER ==
[2020-11-16 09:53] LABS: HEMATOCRIT 28.5 % (42.0-52.0); HEMOGLOBIN 9.5 g/dl (13.5-17.5); MEAN CORPUSCULAR HEMOGLOBIN 33.2 pg (27.0-33.0); MEAN CORPUSCULAR HGB CONC 33.3 g/dl (32.0-36.5); MEAN CORPUSCULAR VOLUME 99.7 fl (80.0-96.0); PLATELET COUNT, AUTOMATED 199 10^3/uL (150-450); RED BLOOD COUNT 2.86 10^6/uL (4.30-6.10); WHITE BLOOD COUNT 9.9 10^3/uL (4.0-10.0)
[2020-11-16 10:23] LABS: ALBUMIN 3.2 GM/DL (3.2-5.2); BILIRUBIN,TOTAL 0.3 MG/DL (0.2-1.0); CALCIUM LEVEL 8.8 MG/DL (8.8-10.2); CHOLESTEROL RISK RATIO 6.454 (<5); CREATININE FOR GFR 2.11 MG/DL (0.70-1.30); GLOMERULAR FILTRATION RATE 33.9 (>49); POTASSIUM SERUM 4.7 MEQ/L (3.5-5.1); TOTAL PROTEIN 6.3 GM/DL (6.4-8.2)
[2020-11-16 10:43] LABS: HEMOGLOBIN A1c 6.1 %
== END ==
LOC: M WUC 08:33
PROVIDERS: ATTEND Nurse Practitioner Adult Health
DX: Z00.00 Encounter for general adult medical examination without abnormal findings (principal); R73.03 Prediabetes; I10 Essential (primary) hypertension; E78.2 Mixed hyperlipidemia; Z12.5 Encounter for screening for malignant neoplasm of prostate; I26.99 Other pulmonary embolism without acute cor pulmonale

== ENCOUNTER → 2021-02-25 | Outpatient (CLI) | payer OTHER ==
[~2021-02-25] MED LIST changes: +ACET650T3 PO; +ALBU8.5H INH; +ATOR40TA75 PO; +LISI40TA4 PO; +METO50TA7 PO; +OMEP-218; +OMEP-221 PO; +POTA20TA6 PO; +STIO1AER INH; +TORS100T PO
[2021-02-25 13:38] LABS: HEMATOCRIT 38.3 % (42.0-52.0); HEMOGLOBIN 11.5 g/dl (13.5-17.5); MEAN CORPUSCULAR HEMOGLOBIN 27.6 pg (27.0-33.0); MEAN CORPUSCULAR VOLUME 92.1 fl (80.0-96.0); PLATELET COUNT, AUTOMATED 349 10^3/uL (150-450); RED BLOOD COUNT 4.16 10^6/uL (4.30-6.10); WHITE BLOOD COUNT 9.7 10^3/uL (4.0-10.0)
[2021-02-25 14:02] LABS: CHOLESTEROL LEVEL 240 MG/DL (<200); CHOLESTEROL RISK RATIO 5.454 (<5); HDL CHOLESTEROL 44 MG/DL (>40); NON-HDL-C 196 MG/DL; TRIGLYCERIDES LEVEL 445 MG/DL (<150)
== END ==
LOC: M WUC 09:04
PROVIDERS: ATTEND Physician Assistant
DX: E78.00 Pure hypercholesterolemia, unspecified (principal); I27.82 Chronic pulmonary embolism

== ENCOUNTER → 2021-03-14 | Outpatient (CLI) | payer OTHER ==
--- NOTE | 2021-03-14 10:36 | REP ---
INDICATION: NICOTINE DEPENDENCE COMPARISON: 02/15/2019, 02/03/2018 TECHNIQUE: Axial noncontrast images from the thoracic inlet to the upper abdomen using low-dose lung screening technique (LDCT). 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 Remainder of lung gray are well aerated and demonstrate chronic age-related interstitial changes and mild emphysematous changes. No acute consolidation, suspicious nodule or mass. No effusion. No pneumothorax. Tracheobronchial tree is patent. Mediastinum demonstrates stable atherosclerotic changes to the thoracic aorta and coronary arteries along with evidence for prior aortic valve repair. IMPRESSION: 1. Lung-RADS category 1. 2. Management recommendations include annual low-dose CT surveillance. 3. New subpleural scarring along the anterior margin of the right upper lung zone with overlying nonacute rib fractures. <Electronically signed by Gaston Hi > 03/14/21 1030
== END ==
LOC: M RAD 09:43
PROVIDERS: ATTEND Internal Medicine Pulmonary Disease
DX: Z12.2 Encounter for screening for malignant neoplasm of respiratory organs (principal); F17.210 Nicotine dependence, cigarettes, uncomplicated

== ENCOUNTER → 2021-04-25 | Outpatient (CLI) | payer OTHER ==
[2021-04-25 11:40] LABS: HEMATOCRIT 38.2 % (42.0-52.0); MEAN CORPUSCULAR HEMOGLOBIN 29.3 pg (27.0-33.0); MEAN CORPUSCULAR HGB CONC 31.4 g/dl (32.0-36.5); MEAN CORPUSCULAR VOLUME 93.2 fl (80.0-96.0); PLATELET COUNT, AUTOMATED 248 10^3/uL (150-450)
[2021-04-25 12:12] LABS: ALBUMIN 3.3 GM/DL (3.2-5.2); BILIRUBIN,TOTAL 0.3 MG/DL (0.2-1.0); CREATININE FOR GFR 1.36 MG/DL (0.70-1.30); GLOMERULAR FILTRATION RATE 56.2 (>49); PERCENT SATURATION 20.4 % (19.7-50.0); POTASSIUM SERUM 4.1 MEQ/L (3.5-5.1); TOTAL PROTEIN 7.1 GM/DL (6.4-8.2)
== END ==
LOC: M WUC 09:24
PROVIDERS: ATTEND Nurse Practitioner Adult Health
DX: I26.99 Other pulmonary embolism without acute cor pulmonale (principal); D50.9 Iron deficiency anemia, unspecified; I10 Essential (primary) hypertension

== ENCOUNTER → 2021-10-16 | Outpatient (CLI) | payer OTHER ==
[~2021-10-16] MED LIST changes: -LISI10TA15 PO; +LISI10TA24 PO; +OMEP-173; -OMEP-218; -OMEP-221 PO; +OMEP40CA5 PO; +POTA-151 PO; -POTA20TA6 PO
[2021-10-16 14:00] LABS: CHOLESTEROL RISK RATIO 4.355 (<5)
== END ==
LOC: M WUC 08:53
PROVIDERS: ATTEND Physician Assistant
DX: E78.00 Pure hypercholesterolemia, unspecified (principal)

== ENCOUNTER → 2021-10-16 | Outpatient (CLI) | payer OTHER ==
[2021-10-16 13:30] LABS: HEMATOCRIT 37.9 % (42.0-52.0); HEMOGLOBIN 12.1 g/dl (13.5-17.5); MEAN CORPUSCULAR HEMOGLOBIN 32.2 pg (27.0-33.0); MEAN CORPUSCULAR HGB CONC 31.9 g/dl (32.0-36.5); MEAN CORPUSCULAR VOLUME 100.8 fl (80.0-96.0); PLATELET COUNT, AUTOMATED 215 10^3/uL (150-450); RED BLOOD COUNT 3.76 10^6/uL (4.30-6.10); WHITE BLOOD COUNT 8.7 10^3/uL (4.0-10.0)
[2021-10-16 14:01] LABS: ALBUMIN 3.1 GM/DL (3.2-5.2); ALT/SGPT 51 U/L (12-78); BILIRUBIN,TOTAL 0.4 MG/DL (0.2-1.0); BLOOD UREA NITROGEN 16 MG/DL (7-18); CALCIUM LEVEL 8.1 MG/DL (8.8-10.2); CARBON DIOXIDE LEVEL 30 MEQ/L (21-32); CHLORIDE LEVEL 98 MEQ/L (98-107); CREATININE FOR GFR 1.09 MG/DL (0.70-1.30); FERRITIN 75 NG/ML (26-388); GLOMERULAR FILTRATION RATE > 60.0 (>49); GLUCOSE, FASTING 120 MG/DL (70-100); IRON (FE) 45 UG/DL (65-175); PERCENT SATURATION 13.5 % (19.7-50.0); POTASSIUM SERUM 3.5 MEQ/L (3.5-5.1); SODIUM LEVEL 140 MEQ/L (136-145); TOTAL IRON BINDING CAPACITY 333 UG/DL (250-450); TOTAL PROTEIN 6.7 GM/DL (6.4-8.2)
[2021-10-16 14:15] LABS: HEMOGLOBIN A1c 6.7 %
== END ==
LOC: M WUC 08:55
PROVIDERS: ATTEND Nurse Practitioner Adult Health
DX: E78.2 Mixed hyperlipidemia (principal); R73.03 Prediabetes; E78.5 Hyperlipidemia, unspecified; D50.8 Other iron deficiency anemias; Z13.29 Encounter for screening for other suspected endocrine disorder

== ENCOUNTER → 2022-03-27 | Outpatient (CLI) | payer MEDICARE | LOC: M RAD 07:50 | PROVIDERS: ATTEND Internal Medicine Pulmonary Disease | DX: Z12.2 Encounter for screening for malignant neoplasm of respiratory organs (principal); Z87.891 Personal history of nicotine dependence ==

== ENCOUNTER 2022-08-17 07:59 | Emergency (ER) | payer MEDICARE, OTHER ==
[~2022-08-17] VITALS: Ht 182.9 cm; Wt 137.6 kg
[2022-08-17] MEDS ORDERED: TORSEMIDE 100 MG TAB PO ONE (08:45)
[2022-08-17 09:37] LABS: INR 1.36
[2022-08-17 09:39] LABS: BLOOD UREA NITROGEN 16 MG/DL (9-23); CALCIUM LEVEL 8.1 MG/DL (8.3-10.6); CARBON DIOXIDE LEVEL 29 MMOL/L (20-31); CHLORIDE LEVEL 99 MMOL/L (98-107); CREATININE FOR GFR 0.97 MG/DL (0.70-1.30); GLOMERULAR FILTRATION RATE > 60.0 (>49); GLUCOSE, FASTING 134 MG/DL (74-106); POTASSIUM SERUM 3.8 MMOL/L (3.5-5.1); SODIUM LEVEL 137 MMOL/L (136-145)
[2022-08-17 09:39] LABS: D-DIMER QUANT 422.58 ng/ml (<500)
[2022-08-17 09:46] LABS: URIC ACID 9.3 MG/DL (3.7-9.2)
[2022-08-17 10:10] LABS: BASO # 0.1 10^3/uL (0.0-0.2); BASO % 0.5 % (0.0-1.0); EOS # 0.1 10^3/uL (0.0-0.5); EOS % 0.5 % (0.0-3.0); HEMATOCRIT 33.9 % (42.0-52.0); HEMOGLOBIN 10.6 g/dl (13.5-17.5); LYMPH % 9.1 % (24.0-44.0); MEAN CORPUSCULAR HEMOGLOBIN 31.4 pg (27.0-33.0); MEAN CORPUSCULAR HGB CONC 31.3 g/dl (32.0-36.5); MEAN CORPUSCULAR VOLUME 100.3 fl (80.0-96.0); MONO # 0.8 10^3/uL (0.0-0.8); MONO % 7.6 % (2.0-8.0); NEUTROPHILS # 8.9 10^3/uL (1.5-8.5); NEUTROPHILS % 81.7 % (36.0-66.0); PLATELET COUNT, AUTOMATED 243 10^3/uL (150-450); RED BLOOD COUNT 3.38 10^6/uL (4.30-6.10); WHITE BLOOD COUNT 10.9 10^3/uL (4.0-10.0)
[2022-08-17 10:29] LABS: ERYTHROCYTE SEDIMENTATION RATE 89 mm/hr (0-20)
[2022-08-17] MEDS ORDERED: COLCHICINE 0.6 MG TABLET PO ONE (11:15)
[2022-08-17 11:42] VITALS: BP 163/70
== END 2022-08-17 12:15 | disposition home or self-care (01) ==
LOC: M ED 07:59
DX: S92.351A Displaced fracture of fifth metatarsal bone, right foot, initial encounter for closed fracture (principal); R22.41 Localized swelling, mass and lump, right lower limb; M19.071 Primary osteoarthritis, right ankle and foot; K21.9 Gastro-esophageal reflux disease without esophagitis; G47.33 Obstructive sleep apnea (adult) (pediatric); Z79.01 Long term (current) use of anticoagulants; Z87.891 Personal history of nicotine dependence; Z79.02 Long term (current) use of antithrombotics/antiplatelets; Z79.810 Long term (current) use of selective estrogen receptor modulators (SERMs); Z79.899 Other long term (current) drug therapy

== ENCOUNTER → 2022-08-21 | Outpatient (CLI) | payer MEDICARE, OTHER ==
[2022-08-21 10:02] LABS: BASO % 0.2 % (0.0-1.0); EOS % 0.2 % (0.0-3.0); HEMOGLOBIN 12.2 g/dl (13.5-17.5); LYMPH # 1.5 10^3/uL (1.5-5.0); LYMPH % 12.7 % (24.0-44.0); MEAN CORPUSCULAR HEMOGLOBIN 31.9 pg (27.0-33.0); MEAN CORPUSCULAR HGB CONC 32.1 g/dl (32.0-36.5); MEAN CORPUSCULAR VOLUME 99.2 fl (80.0-96.0); MONO # 0.9 10^3/uL (0.0-0.8); MONO % 7.5 % (2.0-8.0); NEUTROPHILS # 9.5 10^3/uL (1.5-8.5); NEUTROPHILS % 78.7 % (36.0-66.0); PLATELET COUNT, AUTOMATED 360 10^3/uL (150-450); RED BLOOD COUNT 3.83 10^6/uL (4.30-6.10); WHITE BLOOD COUNT 12.1 10^3/uL (4.0-10.0)
[2022-08-21 10:20] LABS: INR 2.43; PROTHROMBIN TIME 26.8 SECONDS (12.5-14.5)
[2022-08-21 10:34] LABS: THYROID STIMULATING HORMONE 3.727 uIU/ML (0.55-4.78); TOTAL 25(OH) VITAMIN D 40.8 NG/ML (20.0-100.0)
[2022-08-21 10:36] LABS: FREE T4 1.13 NG/DL (0.89-1.76); PERCENT SATURATION 12.2 % (19.7-50.0)
== END ==
LOC: M WUC 08:03
PROVIDERS: ATTEND Internal Medicine Hematology
DX: D53.9 Nutritional anemia, unspecified (principal); Z51.81 Encounter for therapeutic drug level monitoring

== ENCOUNTER → 2023-03-11 | Outpatient (CLI) | payer MEDICARE, OTHER | LOC: M RAD 08:53 | PROVIDERS: ATTEND Nurse Practitioner Family | DX: I65.21 Occlusion and stenosis of right carotid artery (principal) ==

== ENCOUNTER → 2023-03-30 | Outpatient (CLI) | payer MEDICARE, OTHER | LOC: M RAD 08:11 | PROVIDERS: ATTEND Internal Medicine Pulmonary Disease | DX: Z12.2 Encounter for screening for malignant neoplasm of respiratory organs (principal); Z87.891 Personal history of nicotine dependence ==

== ENCOUNTER → 2023-08-24 | Outpatient (REF) | payer MEDICARE, OTHER ==
[2023-08-24 12:18] LABS: INR 2.62
[2023-08-24 12:21] LABS: HEMATOCRIT 40.2 % (42.0-52.0); HEMOGLOBIN 12.9 g/dl (13.5-17.5); MEAN CORPUSCULAR HEMOGLOBIN 32.3 pg (27.0-33.0); MEAN CORPUSCULAR HGB CONC 32.1 g/dl (32.0-36.5); MEAN CORPUSCULAR VOLUME 100.5 fl (80.0-96.0); PLATELET COUNT, AUTOMATED 238 10^3/uL (150-450)
[2023-08-24 12:46] LABS: ALBUMIN 3.3 G/DL (3.2-5.2); ALKALINE PHOSPHATASE 122 U/L (46-116); ALT/SGPT 44 U/L (7.0-40); AST/SGOT 35 U/L (<34); BILIRUBIN,TOTAL 0.6 MG/DL (0.3-1.2); BLOOD UREA NITROGEN 20 MG/DL (9-23); CALCIUM LEVEL 8.7 MG/DL (8.3-10.6); CARBON DIOXIDE LEVEL 35 MMOL/L (20-31); CHLORIDE LEVEL 95 MMOL/L (98-107); CREATININE FOR GFR 1.01 MG/DL (0.70-1.30); GLOMERULAR FILTRATION RATE > 60.0 (>49); GLUCOSE, FASTING 131 MG/DL (74-106); IRON (FE) 59 UG/DL (65-175); PERCENT SATURATION 16.3 % (19.7-50.0); POTASSIUM SERUM 3.7 MMOL/L (3.5-5.1); SODIUM LEVEL 137 MMOL/L (136-145); TOTAL IRON BINDING CAPACITY 363 UG/DL (250-425); TOTAL PROTEIN 7.1 G/DL (5.7-8.2)
[2023-08-24 12:47] LABS: FERRITIN 91.7 NG/ML (10.5-307.3)
== END ==
LOC: M LABWUC 11:28
PROVIDERS: ATTEND Nurse Practitioner Adult Health
DX: E78.2 Mixed hyperlipidemia (principal); D50.8 Other iron deficiency anemias; Z51.81 Encounter for therapeutic drug level monitoring

== ENCOUNTER → 2023-11-27 | Outpatient (CLI) | payer MEDICARE, OTHER ==
[2023-11-27 11:41] LABS: HEMOGLOBIN 12.4 g/dl (13.5-17.5); MEAN CORPUSCULAR HEMOGLOBIN 32.3 pg (27.0-33.0); MEAN CORPUSCULAR HGB CONC 31.8 g/dl (32.0-36.5); MEAN CORPUSCULAR VOLUME 101.6 fl (80.0-96.0); PLATELET COUNT, AUTOMATED 225 10^3/uL (150-450); RED BLOOD COUNT 3.84 10^6/uL (4.30-6.10); WHITE BLOOD COUNT 8.6 10^3/uL (4.0-10.0)
[2023-11-27 11:46] LABS: PSA SCREENING 1.87 NG/ML (< 4.00)
[2023-11-27 11:48] LABS: ALBUMIN 3.1 G/DL (3.2-5.2); ALKALINE PHOSPHATASE 105 U/L (46-116); ALT/SGPT 33 U/L (7.0-40); AST/SGOT 27 U/L (<34); BILIRUBIN,TOTAL 0.5 MG/DL (0.3-1.2); BLOOD UREA NITROGEN 14 MG/DL (9-23); CALCIUM LEVEL 8.7 MG/DL (8.3-10.6); CARBON DIOXIDE LEVEL 31 MMOL/L (20-31); CHLORIDE LEVEL 103 MMOL/L (98-107); CHOLESTEROL LEVEL 139 MG/DL (<200); CHOLESTEROL RISK RATIO 4.45 (<5); CREATININE FOR GFR 0.92 MG/DL (0.70-1.30); GLOMERULAR FILTRATION RATE > 60.0 (>49); GLUCOSE, FASTING 118 MG/DL (74-106); HDL CHOLESTEROL 31.2 MG/DL (>40); LDL CHOLESTEROL 67.4 MG/DL (<100); MAGNESIUM LEVEL 1.2 MG/DL (1.8-2.4); NON-HDL-C 107.8 MG/DL; POTASSIUM SERUM 4.5 MMOL/L (3.5-5.1); SODIUM LEVEL 140 MMOL/L (136-145); TOTAL PROTEIN 6.6 G/DL (5.7-8.2); TRIGLYCERIDES LEVEL 202 MG/DL (<150)
[2023-11-27 11:49] LABS: FERRITIN 107.4 NG/ML (10.5-307.3)
[2023-11-27 12:03] LABS: CREATININE, URINE 206.3 MG/DL
[2023-11-27 12:04] LABS: MALB URINE SIEMENS < 3.0 MG/L; MAU/CREAT RATIO 1.4 MCG/MG (0.0-30.0)
[2023-11-27 12:26] LABS: HEMOGLOBIN A1c 6.8 % (4.0-6.0)
== END ==
LOC: M WUC 08:16
PROVIDERS: ATTEND Nurse Practitioner Adult Health
DX: E78.2 Mixed hyperlipidemia (principal); E11.9 Type 2 diabetes mellitus without complications; Z12.5 Encounter for screening for malignant neoplasm of prostate; D50.8 Other iron deficiency anemias; E55.9 Vitamin D deficiency, unspecified; Z95.2 Presence of prosthetic heart valve
CPT/HCPCS: 36415; 80053; 80061; 82043; 82652; 82728; 83036; 83735; 85027; G0103

== ENCOUNTER → 2024-03-16 | Outpatient (CLI) | payer MEDICARE, OTHER | LOC: M RAD 10:12 | PROVIDERS: ATTEND Internal Medicine Cardiovascular Disease | DX: I65.21 Occlusion and stenosis of right carotid artery (principal) ==

== ENCOUNTER → 2024-03-29 | Outpatient (CLI) | payer MEDICARE, MEDICAID ==
[2024-03-29 11:00] LABS: HEMATOCRIT 39.5 % (42.0-52.0); HEMOGLOBIN 12.9 g/dl (13.5-17.5); MEAN CORPUSCULAR HEMOGLOBIN 32.3 pg (27.0-33.0); MEAN CORPUSCULAR HGB CONC 32.7 g/dl (32.0-36.5); PLATELET COUNT, AUTOMATED 202 10^3/uL (150-450); RED BLOOD COUNT 3.99 10^6/uL (4.30-6.10); WHITE BLOOD COUNT 8.1 10^3/uL (4.0-10.0)
[2024-03-29 11:12] LABS: ALKALINE PHOSPHATASE 103 U/L (40-129); ALT/SGPT 35 U/L (7.0-40); AST/SGOT 27 U/L (<34); BILIRUBIN,TOTAL 0.6 MG/DL (0.3-1.2); BLOOD UREA NITROGEN 14 MG/DL (9-23); CALCIUM LEVEL 9.1 MG/DL (8.3-10.6); CARBON DIOXIDE LEVEL 32 MMOL/L (20-31); CHLORIDE LEVEL 103 MMOL/L (98-107); CREATININE FOR GFR 0.96 MG/DL (0.70-1.30); GLOMERULAR FILTRATION RATE > 60.0 (>49); GLUCOSE, FASTING 113 MG/DL (74-106); MAGNESIUM LEVEL 1.6 MG/DL (1.8-2.4); POTASSIUM SERUM 4.5 MMOL/L (3.5-5.1); SODIUM LEVEL 139 MMOL/L (136-145); TOTAL PROTEIN 6.9 G/DL (5.7-8.2)
[2024-03-29 11:16] LABS: HEMOGLOBIN A1c 6.6 % (4.0-6.0)
== END ==
LOC: M PLALAB 09:13
PROVIDERS: ATTEND Nurse Practitioner Adult Health
DX: D50.8 Other iron deficiency anemias (principal); E11.9 Type 2 diabetes mellitus without complications; E55.9 Vitamin D deficiency, unspecified; E78.2 Mixed hyperlipidemia; Z95.2 Presence of prosthetic heart valve

== ENCOUNTER → 2024-03-29 | Outpatient (CLI) | payer MEDICARE, MEDICAID ==
[2024-03-29 11:14] LABS: BLOOD UREA NITROGEN 14 MG/DL (9-23); CALCIUM LEVEL 9.2 MG/DL (8.3-10.6); CARBON DIOXIDE LEVEL 31 MMOL/L (20-31); CHLORIDE LEVEL 102 MMOL/L (98-107); CREATININE FOR GFR 0.91 MG/DL (0.70-1.30); GLOMERULAR FILTRATION RATE > 60.0 (>49); GLUCOSE, FASTING 115 MG/DL (74-106); POTASSIUM SERUM 4.4 MMOL/L (3.5-5.1); SODIUM LEVEL 140 MMOL/L (136-145)
== END ==
LOC: M PLALAB 09:11
PROVIDERS: ATTEND Internal Medicine Cardiovascular Disease
DX: I65.21 Occlusion and stenosis of right carotid artery (principal)

== ENCOUNTER → 2024-04-12 | Outpatient (CLI) | payer MEDICARE, MEDICAID ==
[~2024-04-12] MED LIST changes: +ISOVUE-370 76% 100ML VIAL As Ordered ONE
== END ==
LOC: M RAD 09:22
PROVIDERS: ATTEND Internal Medicine Cardiovascular Disease
DX: I65.21 Occlusion and stenosis of right carotid artery (principal)
CPT/HCPCS: 70498; Q9967

== ENCOUNTER → 2024-05-04 | Outpatient (CLI) | payer MEDICARE, MEDICAID ==
[~2024-05-04] MED LIST changes: -ISOVUE-370 76% 100ML VIAL As Ordered ONE
== END ==
LOC: M RAD 09:49
PROVIDERS: ATTEND Internal Medicine Pulmonary Disease
DX: Z87.891 Personal history of nicotine dependence (principal); R91.8 Other nonspecific abnormal finding of lung field; J98.4 Other disorders of lung; R59.0 Localized enlarged lymph nodes; K76.0 Fatty (change of) liver, not elsewhere classified; Z87.81 Personal history of (healed) traumatic fracture

== ENCOUNTER → 2024-09-14 | Outpatient (CLI) | payer MEDICARE, MEDICAID ==
[2024-09-14 12:14] LABS: INR 2.41; PROTHROMBIN TIME 26.3 SECONDS (12.5-14.5)
== END ==
LOC: M WUC 08:58
PROVIDERS: ATTEND Nurse Practitioner Adult Health
DX: I26.99 Other pulmonary embolism without acute cor pulmonale (principal); Z51.81 Encounter for therapeutic drug level monitoring

== ENCOUNTER → 2024-11-22 | Outpatient (CLI) | payer MEDICARE, MEDICAID ==
[~2024-11-22] MED LIST changes: +LISI40TA10 PO; -LISI40TA4 PO
[2024-11-22 13:16] LABS: PLATELET COUNT, AUTOMATED 237 10^3/uL (150-450)
[2024-11-22 13:23] LABS: ALT/SGPT 24.0 U/L (7.0-40); AST/SGOT 34.0 U/L (<34); CALCIUM LEVEL 8.5 MG/DL (8.3-10.6); CARBON DIOXIDE LEVEL 34.0 MMOL/L (20-31); CHLORIDE LEVEL 96.0 MMOL/L (98-107); CHOLESTEROL LEVEL 138.0 MG/DL (<200); CHOLESTEROL RISK RATIO 4.27 (<5); CREATININE FOR GFR 1.15 MG/DL (0.70-1.30); GLOMERULAR FILTRATION RATE 69.8 (>49); LDL CHOLESTEROL 65.1 MG/DL (<100); MAGNESIUM LEVEL 1.3 MG/DL (1.8-2.4); NON-HDL-C 105.7 MG/DL; POTASSIUM SERUM 4.3 MMOL/L (3.5-5.1); SODIUM LEVEL 140.0 MMOL/L (136-145); TRIGLYCERIDES LEVEL 203.0 MG/DL (<150)
[2024-11-22 13:31] LABS: ESTIMATED AVERAGE GLUCOSE 140.0 MG/DL (60-110)
[2024-11-22 13:44] LABS: CREATININE, URINE 34.9 MG/DL; MALB URINE SIEMENS < 3.0 MG/L
== END ==
LOC: M WUC 08:13
PROVIDERS: ATTEND Nurse Practitioner Adult Health
DX: Z95.2 Presence of prosthetic heart valve (principal); D50.8 Other iron deficiency anemias; E11.9 Type 2 diabetes mellitus without complications; E55.9 Vitamin D deficiency, unspecified

== ENCOUNTER → 2024-11-29 | Outpatient (CLI) | payer MEDICARE, MEDICAID ==
[2024-11-29 12:11] LABS: INR 2.78
== END ==
LOC: M WUC 09:28
PROVIDERS: ATTEND Nurse Practitioner Adult Health
DX: I26.99 Other pulmonary embolism without acute cor pulmonale (principal); Z79.01 Long term (current) use of anticoagulants

== ENCOUNTER → 2025-01-10 | Outpatient (CLI) | payer MEDICARE, MEDICAID ==
[2025-01-10 12:01] LABS: INR 2.65
== END ==
LOC: M WUC 10:29
PROVIDERS: ATTEND Nurse Practitioner Adult Health
DX: I26.99 Other pulmonary embolism without acute cor pulmonale (principal); Z79.01 Long term (current) use of anticoagulants